=== PATIENT | female | born 1945 | race Caucasian/White ===

== ENCOUNTER 2021-11-25 17:35 | Inpatient (IN) ==
--- NOTE | 2021-11-25 17:49 | Emergency Department Note ---
HPI General Chief complaint: Extremity Injury, Lower Stated complaint: leg fracture Time Seen by Provider: 11/25/21 17:48 Source: patient and EMS Mode of arrival: ambulatory Limitations: no limitations History of Present Illness HPI Narrative: 68-year-old female with past medical history of hypertension and hyperlipidemia, presenting with right hip pain after a fall. Patient states she slipped at the store on the ice and fell onto her right side. Denies hitting her head or losing consciousness. She endorses pain in her right lateral hip area and right knee. No numbness, weakness, or paresthesias. History of left hip surgical repair. She was given 30 mg of ketamine via EMS secondary to her opiate aller gies. Currently she has pain in her right hip but denies any other complaints. No recent fever, cough, vomiting, abdominal pain, or dysuria. Not on anticoagulation. Related Data Home Medications Medication Instructions Recorded Confirmed acetaminophen 325 mg capsule 325 mg PO Q6H PRN 08/05/19 11/25/21 (Tylenol) denosumab 60 mg/mL subcutaneous 60 mg SUB-Q ONCE 08/05/19 11/25/21 syringe (Prolia) cholecalciferol (vitamin D3) 125 50,000 unit PO WEEKLY 11/25/21 11/25/21 mcg (5,000 unit) capsule Previous Rx's Medication Instructions Recorded benzonatate 200 mg capsule 200 mg PO TID PRN #21 cap 07/22/20 pioglitazone 15 mg tablet See Rx Instructions .ROUTE 02/14/21 .COMPLEX #90 tab blood sugar diagnostic (OneTouch #100 each 03/14/21 Ultra Blue Test Strip) amlodipine 5 mg tablet 5 mg PO QDAY #90 tab 08/04/21 atorvastatin 20 mg tablet 20 mg PO HS #90 tab 08/04/21 levothyroxine 112 mcg tablet See Rx Instructions .ROUTE 08/04/21 .COMPLEX #90 tab metoprolol succinate 25 mg 25 mg PO QDAY #90 tab 08/04/21 tablet,extended release 24 hr montelukast 10 mg tablet 10 mg PO QDAY #90 tab 08/04/21 omeprazole 40 mg capsule,delayed 40 mg PO QDAY #90 cap 08/04/21 release hydrochlorothiazide 25 mg tablet 25 mg PO QDAY #90 tab 09/06/21 repaglinide 1 mg tablet See Rx Instructions .ROUTE 10/24/21 .COMPLEX #270 tab Allergies Allergy/AdvReac Type Severity Reaction Status Date / Time morphine Allergy Severe Anaphylaxis Verified 11/25/21 21:25 albuterol Allergy Unknown Unknown Verified 11/25/21 21:25 amitriptyline Allergy Unknown Unknown Verified 11/25/21 21:25 [From Triavil 2-10] clarithromycin [From Biaxin] Allergy Unknown Unknown Verified 11/25/21 21:25 glipizide Allergy Unknown Unknown Verified 11/25/21 21:25 hydrocodone [From Vicodin] Allergy Unknown Hallucinati Verified 11/25/21 21:25 ng meloxicam Allergy Unknown Unknown Verified 11/25/21 21:25 metformin Allergy Unknown Flatulence Verified 11/25/21 21:25 oxycodone [Oxycodone] Allergy Unknown Hallucinati Verified 11/25/21 21:25 ng perphenazine Allergy Unknown Unknown Verified 11/25/21 21:25 [From Triavil 2-10] Sulfa (Sulfonamide Allergy Unknown problem Verified 11/25/21 21:25 Antibiotics) with kidneys tramadol [From Ultram] Allergy Unknown Unknown Verified 11/25/21 21:25 nitrofurantoin Allergy Abdominal Verified 11/25/21 21:25 [From Macrobid] Pain mirabegron [From Myrbetriq] AdvReac Severe Dizziness Verified 11/25/21 21:25 NO ALLERGY to fentanyl Allergy Intermediate Unknown Uncoded 10/26/21 15:20 Review of Systems ROS ROS Narrative: Narrative: Constitutional: Denies fever or chills ENT ED: Denies throat pain Cardiovascular: Denies chest pain Respiratory: Denies shortness of breath or cough Gastrointestinal: Denies abdominal pain, nausea, vomiting or diarrhea Genitourinary: Denies dysuria or hematuria Musculoskeletal: Denies back pain Integumentary: Denies rash Neurological: Denies headache, numbness, paresthesias or dizziness Psychiatric: Denies anxiety Endocrine: Denies fatigue Hematological/Lymphatic: Denies easy bleeding PFSH Narrative Patient History Narrative: Narrative: Medical/Surgical/Family History All Active Problems (Updated 11/26/21 @ 01:05 by Campos Meng MD) Closed nondisplaced intertrochanteric fracture of right femur (Acute) Strain of left hip (Acute) History of hip surgery (Acute) Left hip pain (Acute) History of thyroid surgery (Chronic) Hx of pelvic surgery (Chronic) History of nephrectomy (Chronic) Hx of knee surgery (Chronic) History of incisional hernia repair (Chronic 06/12/13) Hx of esophagogastroduodenoscopy (Chronic) Hx of colonoscopy (Chronic 10/02/12) Hx of cholecystectomy (Chronic) Previous section (Chronic) Urinary tract infection (Chronic) Secondary hyperparathyroidism, renal (Chronic 01/13/14) Renal failure (Chronic) Pyelonephritis (Chronic) Acidosis, renal tubular (Chronic 01/13/14) History of kidney stones (Chronic) Calculus of kidney (Chronic 05/21/13) Incisional hernia, without obstruction or gangrene (Chronic 06/11/13) Hypoglycemia (Chronic) Hypertensive chronic kidney disease (Chronic 12/16/13) Essential hypertension (Chronic) Dyslipidemia (Chronic) Hydronephrosis (Chronic) Broken hip (Chronic) Closed fracture of shaft of femur (Chronic) DM w/o complication type II (Chronic) Acute cystitis (Chronic 05/25/13) Cystitis (Chronic) Carpal tunnel syndrome (Chronic) Breast tenderness (Chronic) Back pain (Chronic) Anemia in chronic kidney disease (Chronic 01/13/14) Anemia (Chronic) Acquired absence of kidney (Chronic) Abdominal pain (Chronic) CKD (chronic kidney disease), stage III (Chronic) Chronic Kidney Disease (Chronic) Secondary hyperparathyroidism of renal origin (Chronic) UTI (urinary tract infection) (Chronic) Low back pain (Chronic) Proximal humerus fracture (Chronic) Strain of lumbar region (Chronic) Osteoarthritis of lumbar spine (Chronic) Ankle sprain and strain (Chronic) Knee contusion (Chronic) Osteoarthritis of left shoulder (Chronic) Osteoarthritis of right knee (Chronic) Skin lesion of face (Chronic) Shoulder pain, left (Chronic) Depression (Chronic) Dry skin (Chronic) Grief reaction (Chronic) Lumbar back pain with radiculopathy affecting lower extremity (Chronic) Knee pain, right (Chronic) Hip pain (Chronic) Thyroid nodule (Chronic) Actinic keratosis (Chronic) Osteoporosis (Chronic) Nausea (Chronic) Dermatitis (Chronic) Memory loss (Chronic) Leg pain (Chronic) Other specified idiopathic peripheral neuropathy (Chronic) Urinary tract infection, site not specified (Chronic) Renovascular hypertension (Chronic) Secondary hyperparathyroidism (Chronic) Obesity (Chronic) Nephrolithiasis (Chronic) Other specified disorders resulting from impaired renal function (Chronic) Closed compression fracture of thoracic vertebra (Chronic) Hypertension (Chronic) Diabetes mellitus (Chronic) Hypothyroidism (Chronic) Chronic rhinitis (Chronic) Osteoarthritis (Chronic) Hernia, incisional (Chronic) Hypotension (Chronic) Hyperkalemia (Chronic) Fracture of femur, intertrochanteric, left, closed (Chronic) Hydronephrosis, right (Chronic) Herpes simplex infection (Chronic) Gastroparesis (Chronic) Constipation (Chronic) Osteopenia (Chronic) Diabetic neuropathy (Chronic) Peripheral neuropathy (Chronic) Anxiety (Chronic) Vertigo (Chronic) Venous insufficiency (Chronic) Postphlebetic syndrome with other complication (Chronic) Varicose veins of lower extremities with other complications (Chronic) Atherosclerosis of [place] arteries of the extremities with rest pain (Chronic) Leg pain, bilateral (Chronic) Sciatica (Chronic) Arthritis (Chronic) Unspecified vitamin D deficiency (Chronic) Shoulder pain (Chronic) GERD (gastroesophageal reflux disease) (Chronic) COPD (chronic obstructive pulmonary disease) (Chronic) Hyperlipidemia (Chronic) Hormone replacement therapy (HRT) (Chronic) Fall (Acute) Rib pain on right side (Acute) Chest wall contusion (Acute) Physical exam (Chronic) Closed left hip fracture (Chronic ~2012) Skin lesion (Acute) Squamous cell skin cancer (Acute) Visit for suture removal (Acute) Medication monitoring encounter (Chronic) Situational stress (Acute) Visit for suture removal (Acute) Fever (Acute) UTI (urinary tract infection) (Acute) Right upper quadrant pain (Acute) Thoracic back pain (Acute) Cough (Acute) Recurrent UTI (Acute) Acute URI (Acute) OAB (overactive bladder) (Acute) Nocturia more than twice per night (Acute) Dependent edema (Acute) Pruritic intertrigo (Acute) Vaginitis (Acute) Urge incontinence of urine (Acute) Postmenopausal atrophic vaginitis (Acute) Callus (Acute) Peripheral edema (Acute) Bilateral leg cramps (Acute) Medical History (Updated 11/26/21 @ 01:05 by Campos Meng MD) Abdominal pain Acidosis, renal tubular (01/13/14) Acquired absence of kidney Actinic keratosis Acute cystitis (05/25/13) Anemia above threshold for RAY but has some drop will obtain anemia work up Anemia in chronic kidney disease (01/13/14) Anxiety Arthritis Atherosclerosis of [place] arteries of the extremities with rest pain Back pain Breast tenderness Broken hip Calculus of kidney (05/21/13) Carpal tunnel syndrome Chronic Kidney Disease Chronic rhinitis CKD (chronic kidney disease), stage III most recent s.creat is 1.5 which equals to egfr of 33ml/min per MDRD equation, s.creat a little worse from 1.3-1.4 h/o microalbuminuria risk factors as above labs discussed with the pt advised to avoid NSAIDS, volume depletion Advised to avoid protein drink keep BP log and work on weight loss Will follow with repeat labs in 2-3 mths to ensure stable renal function Closed compression fracture of thoracic vertebra Closed fracture of shaft of femur Closed left hip fracture (~2012) Constipation COPD (chronic obstructive pulmonary disease) Cystitis Depression Dermatitis Diabetes mellitus Diabetic neuropathy DM w/o complication type II Dry skin Dyslipidemia Essential hypertension Fever Fracture of femur, intertrochanteric, left, closed Gastroparesis GERD (gastroesophageal reflux disease) Grief reaction Hernia, incisional Herpes simplex infection Hip pain History of kidney stones Hormone replacement therapy (HRT) Hydronephrosis Hydronephrosis, right Hyperkalemia Hyperlipidemia Hypertension Hypertensive chronic kidney disease (12/16/13) BP at goal ct current meds follow low sodium diet walk for 30 min atleast 5 times a week Hypoglycemia Hypotension Hypothyroidism Incisional hernia, without obstruction or gangrene (06/11/13) Knee pain, right Left hip pain Leg pain Leg pain, bilateral Lumbar back pain with radiculopathy affecting lower extremity Memory loss Nausea Nephrolithiasis Obesity Osteoarthritis Osteopenia Osteoporosis Other specified disorders resulting from impaired renal function Other specified idiopathic peripheral neuropathy Peripheral neuropathy Physical exam Postphlebetic syndrome with other complication Pyelonephritis Recurrent UTI Renal failure Renovascular hypertension Sciatica Secondary hyperparathyroidism Secondary hyperparathyroidism of renal origin phos elevated likely related to increased dietary intake low phos diet discussed if persistent elevated will need to add binders also will check PTH and vitamin D, Levels at goal this visit Secondary hyperparathyroidism, renal (01/13/14) Shoulder pain Shoulder pain, left Skin lesion of face Strain of left hip Thyroid nodule Unspecified vitamin D deficiency Urinary tract infection Urinary tract infection, site not specified UTI (urinary tract infection) Varicose veins of lower extremities with other complications Venous insufficiency Vertigo Surgical History (Updated 10/26/21 @ 16:13 by SISI Solomon) History of esophagogastroduodenoscopy (EGD) (~06/2010) INFLAMMATION History of hip surgery History of incisional hernia repair (06/12/13) laparoscopic ventral incisional hernia repair with mesh History of nephrectomy History of thyroid surgery Hx of cholecystectomy Hx of colonoscopy (10/02/12) Hx of esophagogastroduodenoscopy 06/2010 Hx of knee surgery Hx of pelvic surgery Right Pyeloplasty Previous section Family History Father , age 87 Alzheimer's disease Paternal Grandmother Alzheimer's disease Mother Angina at rest HTN (hypertension) Arthritis Osteoporosis Uncle Type 2 diabetes mellitus Maternal Grandparent , Grandmother and Grandfather both age 94 No problems noted. Grandfather , age unknown, Paternal No problems noted. Son Headache Social History Smoking Status: Former smoker Alcohol Intake Frequency: does not drink Substance Use: does not use Exam Narrative Narrative: Narrative: General Limitations: no limitations General appearance: Present alert and in no apparent distress Head Head: Present atraumatic and normocephalic Eye Eye: Present normal appearance, PERRL and EOMI; Absent scleral icterus or conjunctival injection ENT ENT: Present mucous membranes moist Neck Neck: Present normal inspection, full ROM and trachea midline; Absent tenderness, meningismus or lymphadenopathy Chest Chest: Present symmetric chest wall rise Respiratory Respiratory: Present normal lung sounds bilaterally; Absent respiratory distress, wheezes, stridor, accessory muscle use or prolonged expiratory phase Cardiovascular Cardiovascular: Present regular rate and normal rhythm; Absent systolic murmur or diastolic murmur Expanded Lower Extremity Hip/Pelvis: Present tenderness (Over the right lateral hip); Absent swelling, deformity or erythema Upper leg: Present normal inspection; Absent swelling or deformity Knee: Present normal inspection and tenderness; Absent deformity Ankle: Present normal inspection and full ROM; Absent tenderness Foot/toe: Present normal inspection and full ROM; Absent tenderness Neurovascular/Tendon: Present normal capillary refill; Absent pulse deficit, motor deficit or sensory deficit Neurological Neurological: Present alert, oriented X3 and CN II-XII intact; Absent motor sensory deficit Psychiatric Psychiatric: Present normal affect and normal mood Skin Skin: Present warm (WNL) and dry Course Consultations Consultation #1: Dr. Coley, orthopedics Time: 20:18 Vital Signs Vital signs: Vital Signs Temperature 96.8 F L 11/25/21 17:36 Pulse Rate 108 H 11/25/21 17:36 Respiratory Rate 19 11/25/21 17:36 Blood Pressure 187/98 11/25/21 17:36 Pulse Oximetry (%) 98 11/25/21 17:36 Temperature 96.8 F L 11/25/21 17:36 Pulse Rate 92 H 11/25/21 23:17 Respiratory Rate 18 11/25/21 23:17 Blood Pressure 128/66 11/25/21 23:17 Pulse Oximetry (%) 96 11/25/21 23:17 MDM MDM Narrative Medical decision making narrative: 76-year-old female presenting with right hip pain after a fall. No external signs of trauma noted. Not on anticoagulation. Will obtain x-rays and reevaluate. 2330: X-rays notable for a nondisplaced right intertrochanteric femur fracture. She was given IV ketamine 20 mg for pain, given her opioid allergies. Patient discussed with Dr. Matos of orthopedics who will admit. Holding orders placed. Labs notable for mild hyponatremia but are otherwise stable. Patient transferred to the floor without incident. Lab Data Lab results reviewed: Yes I reviewed the patient's lab results. Result diagrams: 11/25/21 20:27 11/25/21 20:27 Labs: Lab Results 11/25/21 11/25/21 11/25/21 Range/Units 20:27 20:27 20:27 WBC 8.9 (4.5-11.0) K/mcL RBC 4.38 (3.59-5.38) M/mcL Hgb 13.6 (11.2-15.7) g/dL Hct 40.3 (34.1-44.9) % MCV 92.0 (80.0-100.0) fL MCH 31.1 (26.0-34.0) pg MCHC 33.7 (31.0-36.0) g/dL RDW 13.2 (11.5-14.5) % Plt Count 166 (140-440) K/mcL MPV 10.7 H (7.4-10.4) fL Neut % (Auto) 79.6 H (38.0-78.0) % Lymph % (Auto) 13.3 L (15.5-49.0) % Dodge % (Auto) 6.3 (1.0-12.0) % Eos % (Auto) 0.6 (0.0-7.0) % Baso % (Auto) 0.2 (0.0-2.0) % Lymph # (Auto) 1.18 L (1.50-4.80) K/mcL Dodge # (Auto) 0.56 (0.10-0.90) K/mcL Eos # (Auto) 0.05 (0.00-0.70) K/mcL Baso # (Auto) 0.02 (0.00-0.30) K/mcL Absolute Neutrophils 7.07 (1.80-8.00) K/mcL PT 13.1 (11.9-14.5) sec INR 1.0 (0.9-1.1) Sodium 129 L (133-145) mmol/L Potassium 3.7 (3.3-5.1) mmol/L Chloride 94 L (96-108) mmol/L Carbon Dioxide 24 (22-30) mmol/L Anion Gap 11.0 (8.0-16.0) BUN 22 (8-23) mg/dL Creatinine 1.2 H (0.6-1.1) mg/dL GFR Calculation 43 Glucose 145 H (70-105) mg/dL Calcium 9.6 (8.6-10.4) mg/dL Total Bilirubin 0.7 (0.1-1.0) mg/dL AST 31 (<32) U/L ALT 19 (<40) U/L Alkaline Phosphatase 98 (39-117) U/L Total Protein 7.8 (5.9-8.4) gm/dL Albumin 4.1 (3.2-5.2) gm/dL Globulin 3.7 (2.2-3.7) gm/dL Albumin/Globulin Ratio 1.1 (1.0-2.3) Urine Color Urine Appearance (Clear) Urine pH (5.0-9.0) Ur Specific Orange (1.000-1.035) Urine Protein (Negative) mg/dL Urine Glucose (UA) (Negative) mg/dL Urine Ketones (Negative) mg/dL Urine Occult Blood (Negative) randolph/mcL Urine Nitrate (Negative) Urine Bilirubin (Negative) mg/dL Urine Urobilinogen mg/dL Ur Leukocyte Esterase (Negative) /uL Urine RBC (0-3) /hpf Urine WBC (0-4) /hpf Ur Squamous Epith Cells (0-4) /hpf Urine Bacteria (0) /hpf Ur Culture Indicated? 02/25/22 Range/Units 20:28 WBC (4.5-11.0) K/mcL RBC (3.59-5.38) M/mcL Hgb (11.2-15.7) g/dL Hct (34.1-44.9) % MCV (80.0-100.0) fL MCH (26.0-34.0) pg MCHC (31.0-36.0) g/dL RDW (11.5-14.5) % Plt Count (140-440) K/mcL MPV (7.4-10.4) fL Neut % (Auto) (38.0-78.0) % Lymph % (Auto) (15.5-49.0) % Dodge % (Auto) (1.0-12.0) % Eos % (Auto) (0.0-7.0) % Baso % (Auto) (0.0-2.0) % Lymph # (Auto) (1.50-4.80) K/mcL [place] # (Auto) (0.10-0.90) K/mcL Eos # (Auto) (0.00-0.70) K/mcL Baso # (Auto) (0.00-0.30) K/mcL Absolute Neutrophils (1.80-8.00) K/mcL PT (11.9-14.5) sec INR (0.9-1.1) Sodium (133-145) mmol/L Potassium (3.3-5.1) mmol/L Chloride (96-108) mmol/L Carbon Dioxide (22-30) mmol/L Anion Gap (8.0-16.0) BUN (8-23) mg/dL Creatinine (0.6-1.1) mg/dL GFR Calculation Glucose (70-105) mg/dL Calcium (8.6-10.4) mg/dL Total Bilirubin (0.1-1.0) mg/dL AST (<32) U/L ALT (<40) U/L Alkaline Phosphatase (39-117) U/L Total Protein (5.9-8.4) gm/dL Albumin (3.2-5.2) gm/dL Globulin (2.2-3.7) gm/dL Albumin/Globulin Ratio (1.0-2.3) Urine Color Yellow Urine Appearance Clear (Clear) Urine pH 7.0 (5.0-9.0) Ur Specific Orange 1.020 (1.000-1.035) Urine Protein 100 mg/dl A (Negative) mg/dL Urine Glucose (UA) Negative (Negative) mg/dL Urine Ketones Negative (Negative) mg/dL Urine Occult Blood Trace-lysed A (Negative) randolph/mcL Urine Nitrate Negative (Negative) Urine Bilirubin Negative (Negative) mg/dL Urine Urobilinogen Normal mg/dL Ur Leukocyte Esterase Negative (Negative) /uL Urine RBC < 1 (0-3) /hpf Urine WBC 1 (0-4) /hpf Ur Squamous Epith Cells 0 (0-4) /hpf Urine Bacteria None (0) /hpf Ur Culture Indicated? No Radiology Data Radiology results reviewed: Yes I reviewed the patient's radiology results. Radiology results narrative: X-ray right hip: Nondisplaced right intertrochanteric femur fracture, per my interpretation. X-ray right knee: No acute fracture or dislocation noted, per my interpretation. Chest x-ray: No acute abnormality, per my interpretation. Discharge Plan Patient/Caregiver Discharge Instructions Pt seen by SPANISH INSTRUCTOR/PA only: No Clinical Impression: Closed nondisplaced intertrochanteric fracture of right femur Patient Disposition: Xfer As Inpt ([facility]) Condition: Fair Discharge Date/Time: 11/25/21 21:09
[2021-11-25] MEDS ORDERED: ONDANSETRON 4 MG/2 ML VIAL IV PRN (20:22)
[2021-11-25] MEDS ORDERED: KETAMINE 10 MG/ML ML IV ONE (20:26)
[2021-11-25] MEDS ORDERED: 0.9 % SODIUM CHLORIDE 1,000 ML BAG IV SCH (20:30)
[2021-11-25] MEDS: 0.9 % SODIUM CHLORIDE 1,000 ML IV SCH (20:52)
[2021-11-25] MEDS: ACETAMINOPHEN 325 MG TABLET PO PRN (20:53)
[2021-11-25 21:01] LABS: Basophils # (Auto) 0.02 K/mcL (0.00-0.30); Basophils % (Auto) 0.2 % (0.0-2.0); Eosinophils # (Auto) 0.05 K/mcL (0.00-0.70); Eosinophils % (Auto) 0.6 % (0.0-7.0); Hematocrit 40.3 % (34.1-44.9); Hemoglobin 13.6 g/dL (11.2-15.7); Lymphocytes # (Auto) 1.18 K/mcL (1.50-4.80); Lymphocytes % (Auto) 13.3 % (15.5-49.0); Mean Corpuscular HGB Conc 33.7 g/dL (31.0-36.0); Mean Platelet Volume 10.7 fL (7.4-10.4); Monocytes # (Auto) 0.56 K/mcL (0.10-0.90); Monocytes % (Auto) 6.3 % (1.0-12.0); Neutrophils % (Auto) 79.6 % (38.0-78.0); Platelet Count 166 K/mcL (140-440); RBC 4.38 M/mcL (3.59-5.38); Red Cell Distribution Width 13.2 % (11.5-14.5); WBC 8.9 K/mcL (4.5-11.0)
[2021-11-25 21:11] LABS: Prothrombin Time 13.1 sec (11.9-14.5)
[2021-11-25 21:18] LABS: ALT/SGPT 19 U/L (<40); AST/SGOT 31 U/L (<32); Albumin 4.1 gm/dL (3.2-5.2); Albumin/Globulin Ratio 1.1 (1.0-2.3); Alkaline Phosphatase 98 U/L (39-117); Bilirubin,Total 0.7 mg/dL (0.1-1.0); Blood Urea Nitrogen 22 mg/dL (8-23); Calcium 9.6 mg/dL (8.6-10.4); Carbon Dioxide 24 mmol/L (22-30); Chloride 94 mmol/L (96-108); Globulin 3.7 gm/dL (2.2-3.7); Glomerular Filtration Rate 43; Glucose 145 mg/dL (70-105)
[2021-11-25 21:39] LABS: Appearance,Urine Clear (Clear); Bilirubin,Urine Negative (Negative); Color,Urine Yellow; Culture Indicated,Urine No; Glucose,Urine (UA) Negative (Negative); Ketones,Urine Negative (Negative); Leukocyte Esterase,Urine Negative /uL (Negative); Nitrate,Urine Negative (Negative); Urine Blood Trace-lysed ery/mcL (Negative); Urine RBC < 1 /hpf (0-3); Urine Squamous Epithelial Cell 0 /hpf (0-4); Urine WBC 1 /hpf (0-4); Urobilinogen,Urine Normal
[2021-11-25] MEDS: 0.9 % SODIUM CHLORIDE 10 ML SYRINGE IV SCH (22:19)
[2021-11-26] MEDS: 0.9 % SODIUM CHLORIDE 1,000 ML IV SCH ×3 (03:45→18:36)
--- NOTE | 2021-11-26 04:53 | XRay Report ---
CLINICAL INFORMATION: Pain COMPARISON: None. FINDINGS: Moderate patellofemoral and medial tibiofemoral degeneration appreciated. There is enlargement of the tibial tuberosity suggesting old Eden-Schlatter's disease. No other osseous abnormalities. Calcific plaque present within the visualized femoral arteries. There is mild diffuse soft tissue swelling. IMPRESSION: Chronic findings as described. No fracture or other acute finding Interpreted and Authenticated by: Oumar Centeno 11/26/21
--- NOTE | 2021-11-26 04:59 | XRay Report ---
CLINICAL INFORMATION: Preop COMPARISON: 07/05/2020 TECHNIQUE: Portable FINDINGS: The heart is mildly enlarged. Mediastinum is unremarkable pulmonary vessels are mildly distended and there is mild interstitial edema throughout both lungs. Mild bibasilar airspace disease noted most likely atelectasis. No effusions. Six large ovoid calcifications ranging up to 2 cm are seen in the right subdiaphragmatic region. Exact nature and location of these is indeterminate. IMPRESSION: 1. Mild CHF or volume overload. 2. Minor bibasilar atelectasis 3. Six large ovoid calcific densities in the right subdiaphragmatic region. Exact nature and location of these densities is indeterminate. Suggest supine and lateral abdominal films, unless these represent a known entity external to the patient. Interpreted and Authenticated by: Oumar Centeno 11/26/21
--- NOTE | 2021-11-26 05:01 | XRay Report ---
CLINICAL INFORMATION: Trauma now with right hip pain COMPARISON: 10/26/2021 FINDINGS: Nondisplaced acute intertrochanteric fracture of the right hip appreciated. Gamma nail transfixes an old left hip fracture which is solid unified and anatomically aligned. There is mild degeneration of both hips with chondrocalcinosis of the femoral head cartilages. Moderate degenerative change seen in the SI joints is stable. Soft tissue swelling over the fracture site. IMPRESSION: Nondisplaced acute intertrochanteric fracture-right hip Interpreted and Authenticated by: Oumar Centeno 11/26/21
[2021-11-26] MEDS: 0.9 % SODIUM CHLORIDE 10 ML SYRINGE IV SCH ×5 (05:17→22:26)
[2021-11-26] MEDS ORDERED: SCOPOLAMINE 1 PATCH PATCH TOPICAL PRN (07:00)
[2021-11-26] MEDS ORDERED: ceFAZolin 2 GM in DEXTROSE 5% IN WATER 50 ML IV SCH (07:45)
[2021-11-26] MEDS ORDERED: ceFAZolin 1 GM VIAL IV ONE (08:21)
[2021-11-26] MEDS ORDERED: ceFAZolin 1 GM VIAL ONE (08:28)
[2021-11-26] MEDS ORDERED: HYDROmorphone 1 MG/ML SYRINGE ONE (08:32)
[2021-11-26] MEDS ORDERED: PROPOFOL 200 MG/20 ML VIAL IV ONE (08:32)
[2021-11-26] MEDS ORDERED: TRANEXAMIC ACID 1,000 MG/10 ML VIAL ONE (08:32)
[2021-11-26] MEDS ORDERED: DEXAMETHASONE 10 MG/ML VIAL ONE (08:32)
[2021-11-26] MEDS ORDERED: PHENYLephrine 1 MG/10 ML SYRINGE (ANEST) ONE (08:32)
[2021-11-26] MEDS ORDERED: KETAMINE 50 MG/ML Syringe (ANEST) IV ONE (08:32)
[2021-11-26] MEDS ORDERED: fentaNYL 250 MCG/5 ML VIAL IV ONE (08:32)
[2021-11-26] MEDS ORDERED: ONDANSETRON 4 MG/2 ML VIAL ONE (08:32)
[2021-11-26] MEDS ORDERED: LIDOCAINE HCL/PF 100 MG/5 ML SYRINGE IV ONE (08:32)
[2021-11-26] MEDS ORDERED: MAGNESIUM SULFATE 2 GM/50 ML BAG IV ONE (08:32)
[2021-11-26] MEDS ORDERED: GLYCOPYRROLATE 0.2 MG/ML VIAL IV ONE (08:32)
[2021-11-26] MEDS ORDERED: NALOXONE HCL 0.4 MG/ML VIAL IV PRN (09:15)
[2021-11-26] MEDS ORDERED: HYDROmorphone 0.5 MG/0.5 ML SYRINGE IV PRN (09:15)
[2021-11-26] MEDS ORDERED: IPRATROPIUM/ALBUTEROL 3 ML AMPUL.NEB NEB PRN (09:15)
[2021-11-26] MEDS ORDERED: ACETAMINOPHEN 1,000 MG/100 ML BAG IV ONE (09:15)
[2021-11-26] MEDS ORDERED: MEPERIDINE 25 MG/ML VIAL IV PRN (09:15)
[2021-11-26] MEDS ORDERED: LABETALOL 5 MG/ML ML IV PRN (09:15)
[2021-11-26] MEDS ORDERED: LACTATED RINGERS 250 ML IV PRN (09:15)
[2021-11-26] MEDS ORDERED: LACTATED RINGERS 1,000 ML IV SCH (09:15)
[2021-11-26] MEDS ORDERED: ONDANSETRON 4 MG/2 ML VIAL IV PRN ×3 (09:15→10:00)
[2021-11-26] MEDS ORDERED: METHOCARBAMOL 1,000 MG/10 ML VIAL IV PRN (09:15)
[2021-11-26] MEDS ORDERED: BENZOCAINE/MENTHOL 1 LOZENGE PO PRN (09:15)
[2021-11-26] MEDS ORDERED: METOPROLOL TARTRATE 5 MG/5 ML VIAL IV PRN (09:15)
[2021-11-26] MEDS ORDERED: fentaNYL 100 MCG/2 ML VIAL IV PRN (09:15)
--- NOTE | 2021-11-26 09:56 | Consultation ---
DATE OF CONSULTATION: 11/26/2021 CHIEF COMPLAINT: Significant right hip pain. HISTORY OF PRESENT ILLNESS: She had a same level fall. She had immediate pain, swelling, deformity and she is unable to ambulate. Pain radiates into the groin and distally. No numbness or tingling and no loss of consciousness. She has many medical problems and multiple allergies, which are not really allergies, a little frustrating in speaking with the patient as she does not quite understand what an allergy is. ALLERGIES: SHE LISTS ALLERGIES TO MORPHINE, ALBUTEROL, AMITRIPTYLINE, GLIPIZIDE, OXYCODONE, MELOXICAM BUT MOST OF THOSE ARE TRULY JUST SHE GETS HALLUCINATIONS, TRAMADOL, METFORMIN. PAST MEDICAL AND SURGICAL HISTORY: Her other health problems include the right hip pain, history of knee surgery, history of nephrectomy, history of pelvic surgery, history of esophagogastroduodenoscopy, colonoscopy, cholecystectomy, C-sections, renal failure, pyelonephritis, hypoglycemia, diabetes mellitus type 2. Her list is unimaginably long. She is hypochondriac, everything in her world hurts. PHYSICAL EXAMINATION: GENERAL: Very pleasant female but hysterical. Lying in bed in some pain, but is able to give a fairly good history. VITAL SIGNS: Blood pressure 126/65, pulse 88, respiratory rate is 18, temperature is 99.1, and oxygen concentration is 98.2. LUNGS: Clear to auscultation. HEART: Regular rate and rhythm. No murmurs, rubs, or gallops. EXTREMITIES: Her right leg shortened and externally rotated significantly. Foot is pink and warm, able to move the foot up and down, as much as she will. IMAGING: Her x-ray demonstrates an intertrochanteric hip fracture that extends through the greater trochanter and into the lesser trochanter. Bone quality appears to be poor. No tumors were seen. The medial calcar appears to be intact. She has a gamma nail on her left hip, very similar to this side. ASSESSMENT AND PLAN: The treatment will be a gamma nail at her convenience to be done today. Risk, heart attacks and strokes are all possible and infection were explained. She is willing to take these risks to get the ability to walk again and I agree with this. We will proceed with a gamma nail as soon as possible. JEFERSON:silke Job ID: [id number] Doc ID: [id number] Nish Matos MD
[2021-11-26] MEDS ORDERED: TEMAZEPAM 15 MG CAPSULE PO PRN (10:00)
[2021-11-26] MEDS ORDERED: HYDROmorphone 1 MG/ML SYRINGE IV PRN (10:00)
[2021-11-26] MEDS ORDERED: FLEETS ADULT ENEMA PR PRN (10:00)
[2021-11-26] MEDS ORDERED: POLYETHYLENE GLYCOL 3350 17 GM PACKET PO PRN (10:00)
[2021-11-26] MEDS ORDERED: TRANEXAMIC ACID 1,000 MG/10 ML VIAL IV SCH (10:00)
[2021-11-26] MEDS ORDERED: BISACODYL 10 MG SUPP.RECT PR PRN (10:00)
[2021-11-26] MEDS ORDERED: MAGNESIUM HYDROXIDE 30 ML ORAL.SUSP PO PRN (10:00)
--- NOTE | 2021-11-26 10:11 | Discharge Plan ---
DC Instructions-General Patient Instructions Dressing Care: May shower in 2 days and Silvasorb gel & gauze - change daily Discharge Plan Patient/Caregiver Discharge Instructions Activity: ambulate only with your walker and as per physical therapy Diet: Regular Diet Prescriptions: New aspirin [Ecotrin Low Strength] 81 mg tablet,delayed release (DR/EC) 81 mg PO BID Qty: 60 0RF docusate sodium 100 mg capsule 100 mg PO BID Qty: 60 0RF hydromorphone 4 mg tablet 4 mg PO Q4H PRN (Reason: pain) Qty: 75 0RF No Action Prolia 60 mg/mL syringe 60 mg SUB-Q ONCE 0RF Label Comments: Missed Michelle dose acetaminophen [Tylenol] 325 mg capsule 325 mg PO Q6H PRN (Reason: Pain) 0RF (DME) Alignment AcquisitionsTouch Ultra Blue Test Strip Strip See Rx Instructions .ROUTE .MEDSUPPLY Qty: 100 0RF Rx Instructions: Use to test blood sugars 4 times daily. amlodipine 5 mg tablet 5 mg PO QDAY Qty: 90 0RF levothyroxine 112 mcg tablet See Rx Instructions .ROUTE .COMPLEX Qty: 90 0RF Dose Instruction: TAKE ONE TABLET BY MOUTH EVERY MORNING BEFORE MEAL Rx Instructions: TAKE ONE TABLET BY MOUTH EVERY MORNING BEFORE MEAL metoprolol succinate 25 mg tablet extended release 24 hr 25 mg PO QDAY Qty: 90 0RF montelukast 10 mg tablet 10 mg PO QDAY Qty: 90 0RF omeprazole 40 mg capsule,delayed release(DR/EC) 40 mg PO QDAY Qty: 90 0RF atorvastatin 20 mg tablet 20 mg PO HS Qty: 90 0RF hydrochlorothiazide 25 mg tablet 25 mg PO QDAY Qty: 90 3RF repaglinide 1 mg tablet See Rx Instructions .ROUTE .COMPLEX Qty: 270 0RF Dose Instruction: TAKE 1 TABLET BY MOUTH THREE TIMES DAILY Rx Instructions: TAKE 1 TABLET BY MOUTH THREE TIMES DAILY pioglitazone 15 mg tablet See Rx Instructions .ROUTE .COMPLEX Qty: 90 3RF Dose Instruction: TAKE ONE TABLET BY MOUTH ONCE DAILY Rx Instructions: TAKE ONE TABLET BY MOUTH ONCE DAILY benzonatate 200 mg capsule 200 mg PO TID PRN (Reason: cough) Qty: 21 0RF cholecalciferol (vitamin D3) 125 mcg (5,000 unit) capsule 50,000 unit PO WEEKLY 0RF Other Ambulatory Orders: Physical Therapy DC - SERA (Routine) Location: None Selected Ordered By: Wilver Nelson Toilet Riser Discharge Order (ONCE) Location: None Selected Ordered By: Wilver Nelson Walker (ONCE) Location: None Selected Ordered By: Wilver Nelson Follow Up Plan Follow up with: Delia Young ARNP [Primary Care Provider] - Wilver Nelson PA-C [Physician Toggle Press Operator] - Patient Disposition: Home, Self-Care Prognosis: Fair Rehab Potential: Good I certify that the patient requires SNF services: No Overall status at discharge: patient is progressing back to baseline Discharge Orders: Discharge Order (Routine); Ordered 11/27/21 Ordered By: Wilver Nelson
[2021-11-26] MEDS ORDERED: BENZONATATE 100 MG CAPSULE PO PRN (10:26)
[2021-11-26] MEDS: LACTATED RINGERS 1,000 ML IV SCH ×3 (14:31→23:57)
--- NOTE | 2021-11-26 14:31 | XRay Report ---
CLINICAL INFORMATION: ORIF right intertrochanteric fracture COMPARISON: Preoperative films 11/25/2021. FINDINGS: The right intertrochanteric fracture has been reduced anatomic alignment and transfixed by gamma nail. Older left intertrochanteric fracture is solid unified also transfixed by gamma nail. There is mild degenerative change in both SI and hip joints-as previously seen. Moderate right patellofemoral and medial tibiofemoral degeneration also noted. No soft tissue abnormality. IMPRESSION: Right intertrochanteric fracture reduced to anatomic alignment and transfixed by gamma nail. Interpreted and Authenticated by: Oumar Centeno 11/26/21
[2021-11-26] MEDS: LEVOTHYROXINE SODIUM 112 MCG TABLET PO SCH (14:32)
[2021-11-26] MEDS: PIOGLITAZONE 15 MG TABLET PO SCH (14:33)
--- NOTE | 2021-11-26 14:38 | XRay Report ---
CLINICAL INFORMATION: Right intertrochanteric fracture COMPARISON: None. FINDINGS: Intraoperative digital images the right intertrochanteric fracture reduced anatomic alignment transfixed by gamma nail and screws. Mild right-sided degeneration noted. Total fluoroscopy time 0.7 minutes IMPRESSION: Right intertrochanteric fracture reduced to anatomic alignment and transfixed by gamma nail Interpreted and Authenticated by: Oumar Centeno 11/26/21
[2021-11-26] MEDS: REPAGLINIDE 1 MG TABLET PO SCH ×2 (17:39→18:29)
[2021-11-26] MEDS: SENNOSIDES 1 TABLET PO SCH (20:54)
[2021-11-26] MEDS: ATORVASTATIN 20 MG TABLET PO SCH (20:54)
[2021-11-26] MEDS: DOCUSATE SODIUM 100 MG CAPSULE PO SCH (20:54)
[2021-11-26] MEDS: ACETAMINOPHEN 325 MG TABLET PO PRN (20:55)
[2021-11-26] MEDS: ASPIRIN 81 MG TAB.CHEW CHEWED SCH (20:55)
[2021-11-26] MEDS ORDERED: DEXTROSE 50% 50 ML VIAL IV PRN (21:21)
[2021-11-26] MEDS ORDERED: DEXTROSE 31 GM ORAL.SUSP PO PRN (21:21)
[2021-11-26] MEDS: INSULIN LISPRO 1 UNIT/0.01 ML UNIT SQ SCH (21:27)
[2021-11-26] MEDS ORDERED: INSULIN LISPRO 1 UNIT/0.01 ML UNIT SQ ONE (21:31)
[2021-11-27] MEDS: 0.9 % SODIUM CHLORIDE 10 ML SYRINGE IV SCH ×6 (05:23→20:48)
[2021-11-27] MEDS: OMEPRAZOLE 20 MG CAPSULE PO SCH (07:33)
[2021-11-27] MEDS: REPAGLINIDE 1 MG TABLET PO SCH ×3 (07:33→16:38)
[2021-11-27] MEDS: LEVOTHYROXINE SODIUM 112 MCG TABLET PO SCH (07:33)
[2021-11-27] MEDS: ACETAMINOPHEN 325 MG TABLET PO PRN ×2 (07:34→16:37)
[2021-11-27] MEDS: INSULIN LISPRO 1 UNIT/0.01 ML UNIT SQ SCH ×4 (07:36→20:47)
[2021-11-27] MEDS: MONTELUKAST 10 MG TABLET PO SCH (08:18)
[2021-11-27] MEDS: PIOGLITAZONE 15 MG TABLET PO SCH (08:18)
[2021-11-27] MEDS: DOCUSATE SODIUM 100 MG CAPSULE PO SCH ×2 (08:18→20:44)
[2021-11-27] MEDS: amLODIPine 5 MG TABLET PO SCH (08:19)
[2021-11-27] MEDS: ASPIRIN 81 MG TAB.CHEW CHEWED SCH ×2 (08:19→20:44)
[2021-11-27] MEDS: HYDROCHLOROTHIAZIDE 25 MG TABLET PO SCH (08:19)
[2021-11-27] MEDS: METOPROLOL SUCCINATE 25 MG TAB.XL.24H PO SCH (08:19)
[2021-11-27] MEDS: LACTATED RINGERS 1,000 ML IV SCH ×2 (08:24→16:37)
[2021-11-27] MEDS ORDERED: ERGOCALCIFEROL (VITAMIN D2) 50,000 UNIT CAPSULE PO SCH (09:00)
--- NOTE | 2021-11-27 09:37 | Orthopedic Progress Note ---
SUBJECTIVE Subjective Patient information: Note initiated : 11/27/21 at 9:32 am Service Date, if different from initiated Date: [] Patient: Jennifer Nino 76 y/o F admitted on 11/25/21 for leg fracture. Chief Complaint: [pain with weight bearing right hip post op day 1 and eating well] Principal diagnosis: right femur fx with pain Constitutional Vitals: Vital Signs Temp Pulse Resp BP Pulse Ox 98.0 F 75 14 128/60 94 11/27/21 06:39 11/27/21 06:39 11/27/21 06:39 11/27/21 06:39 11/27/21 06:39 Period Temp Pulse Resp BP Sys/Guillory Pulse Ox Last 24 Hr 97.2 F-99.3 F 75-114 7-23 114-159/52-88 90-100 Intake and Output 11/26/21 11/27/21 11/27/21 21:59 05:59 13:59 Intake Total 1100 1134 Output Total 785 200 Balance 315 934 Weight 217 lb Intake & Output: Intake & Output 11/26/21 11/27/21 11/27/21 21:59 05:59 13:59 Intake Total 1100 1134 Output Total 785 200 Balance 315 934 Weight 217 lb Intake: IV 1100 934 Sodium Chloride 0.9% 1,000 ml @ 1000 100 mls/hr IV .Q10H СЕРГЕЙ Rx#: [id number] Lactated Ringers 1,000 ml @ 100 934 mls/hr IV .Q10H СЕРГЕЙ Rx#: [id number] Oral 200 Output: Urine Catheter Amount 785 200 Other: Meal Dinner Percent of Meal Consumed 75% Urine Appearance Clear External Urinary Catheter Clear Clear Urine Color Pale External Urinary Catheter Pale Light [place] Urine Odor Strong General appearance: cooperative and obese Extremities Exam Extremities exam: Present joint swelling, normal capillary refill and neurovascular intact Neurological Exam Neurological exam: Present alert, CN II-XII intact and oriented X3 OBJ DATA Labs CBC & Chem 7: 11/27/21 05:53 11/25/21 20:27 Labs: Abnormal Lab Results 11/27/21 11/25/21 11/25/21 05:53 20:28 20:27 Hct 32.6 L MPV Neut % (Auto) Lymph % (Auto) Lymph # (Auto) Sodium 129 L Chloride 94 L Creatinine 1.2 H Glucose 145 H Urine Protein 100 mg/dl A Urine Occult Blood Trace-lysed A 11/25/21 20:27 Hct MPV 10.7 H Neut % (Auto) 79.6 H Lymph % (Auto) 13.3 L Lymph # (Auto) 1.18 L Sodium Chloride Creatinine Glucose Urine Protein Urine Occult Blood Meds: Medications Acetaminophen (Acetaminophen 325 Mg Tablet) 650 mg PO Q6HP PRN; Protocol PRN Reason: Per Pain Protocol/Fever > 101 Last Admin: 11/27/21 07:34 Dose: 650 mg Documented by: Hydrocodone Bitart/Acetaminophen (Hydrocodone/Apap 5/325mg Tablet) 1 - 2 tab PO Q4HP PRN; Protocol PRN Reason: Per Pain Protocol Amlodipine Besylate (Amlodipine 5 Mg Tablet) 5 mg PO QDAY [facility] Last Admin: 11/27/21 08:19 Dose: 5 mg Documented by: Aspirin (Aspirin 81 Mg Tab.Chew) 81 mg CHEWED BID [facility] Last Admin: 11/27/21 08:19 Dose: 81 mg Documented by: Atorvastatin Calcium (Atorvastatin 20 Mg Tablet) 20 mg PO HS [facility] Last Admin: 11/26/21 20:54 Dose: 20 mg Documented by: Benzonatate (Benzonatate 100 Mg Capsule) 200 mg PO TIDP PRN PRN Reason: Cough Bisacodyl (Bisacodyl 10 Mg Supp.Rect) 10 mg VA Q2-3DAYS PRN PRN Reason: Constipation Dextrose (Dextrose 50% 50 Ml Vial) 0 ml IV UD PRN PRN Reason: Hypoglycemia Diagnostic Test (Pha) (Accu-Chek 1 Each Strip) 1 each FS ACHS [facility] Last Admin: 11/27/21 07:36 Dose: 1 each Documented by: Docusate Sodium (Docusate Sodium 100 Mg Capsule) 100 mg PO BID [facility] Last Admin: 11/27/21 08:18 Dose: 100 mg Documented by: Ergocalciferol (Ergocalciferol (Vitamin D2) 50,000 Unit Capsule) 50,000 unit PO López@0900 [facility] Last Admin: 11/27/21 08:19 Dose: 50,000 unit Documented by: Glucose (Dextrose 31 Gm Oral.Susp) 15 gm PO PRN PRN PRN Reason: Hypoglycemia Hydrochlorothiazide (Hydrochlorothiazide 25 Mg Tablet) 25 mg PO QDAY [facility] Last Admin: 11/27/21 08:19 Dose: 25 mg Documented by: Hydromorphone HCl (Hydromorphone 1 Mg/Ml Syringe) 0.5 - 2 mg IV Q2HP PRN; Protocol PRN Reason: Per Pain Protocol Lactated Ringer's (Lactated Ringers) 1,000 mls @ 100 mls/hr IV .Q10H [facility] Last Admin: 11/27/21 08:24 Dose: Not Given Documented by: Insulin Human Lispro (Insulin Lispro 1 Unit/0.01 Ml Unit) 0 unit SQ ACHS [facility]; Protocol Last Admin: 11/27/21 07:36 Dose: Not Given Documented by: Levothyroxine Sodium (Levothyroxine Sodium 112 Mcg Tablet) 112 mcg PO ACB [facility] Last Admin: 11/27/21 07:33 Dose: 112 mcg Documented by: Magnesium Hydroxide (Magnesium Hydroxide 30 Ml Oral.Susp) 30 ml PO BIDP PRN PRN Reason: Constipation Metoprolol Succinate (Metoprolol Succinate 25 Mg Tab.Xl.24h) 25 mg PO QDAY [facility] Last Admin: 11/27/21 08:19 Dose: 25 mg Documented by: Montelukast Sodium (Montelukast 10 Mg Tablet) 10 mg PO QDAY [facility] Last Admin: 11/27/21 08:18 Dose: 10 mg Documented by: Omeprazole (Omeprazole 20 Mg Capsule) 40 mg PO ACB [facility] Last Admin: 11/27/21 07:33 Dose: 40 mg Documented by: Ondansetron HCl (Ondansetron 4 Mg/2 Ml Vial) 4 mg IV Q6HP PRN PRN Reason: Nausea And Vomiting Ondansetron HCl (Ondansetron 4 Mg/2 Ml Vial) 4 mg IV Q4HP PRN; Protocol PRN Reason: Nausea And Vomiting Pioglitazone HCl (Pioglitazone 15 Mg Tablet) 15 mg PO DAILY [facility] Last Admin: 11/27/21 08:18 Dose: 15 mg Documented by: Polyethylene Glycol (Polyethylene Glycol 3350 17 Gm Packet) 17 gm PO DAILYP PRN PRN Reason: Constipation Repaglinide (Repaglinide 1 Mg Tablet) 1 mg PO TIDAC [facility] Last Admin: 11/27/21 07:33 Dose: Not Given Documented by: Senna (Sennosides 1 Tablet) 2 tab PO HS [facility] Last Admin: 11/26/21 20:54 Dose: 2 tab Documented by: Sodium Biphosphate/Sodium Phosphate (Fleets Adult Enema) 1 dose VA Q3-4DAYS PRN PRN Reason: Constipation Sodium Chloride (0.9 % Sodium Chloride 10 Ml Syringe) 10 ml IV Q8 [facility] Last Admin: 11/27/21 05:23 Dose: Not Given Documented by: Sodium Chloride (0.9 % Sodium Chloride 10 Ml Syringe) 10 ml IV Q8 [facility] Last Admin: 11/27/21 05:45 Dose: Not Given Documented by: Temazepam (Temazepam 15 Mg Capsule) 15 mg PO HSP PRN PRN Reason: Insomnia A/P Narrative A/P Narrative: Unable to ambulate today as weight bearing is painful and is sitting in chair Will need SNF because of pour ambulation Poor bone quality is part of her problem as well. Time Spent With Patient Time: Total time spent is greater than 50% in coordination of care (as documented) at patient's floor/unit and/or counseling patient: Total time spent with greater than 50% in coordination of care (as documented) at patient's floor/unit and/or counseling patient:: Greater than 35 minutes
[2021-11-27] MEDS: HYDROcodone/APAP 5/325MG TABLET PO PRN (17:02)
[2021-11-27] MEDS: ATORVASTATIN 20 MG TABLET PO SCH (20:44)
[2021-11-27] MEDS: SENNOSIDES 1 TABLET PO SCH (20:48)
[2021-11-28] MEDS: 0.9 % SODIUM CHLORIDE 10 ML SYRINGE IV SCH ×6 (05:52→20:40)
--- NOTE | 2021-11-28 07:27 | Consultation ---
DATE OF CONSULTATION: 11/25/2021 DATE OF ADMISSION: 11/25/2021 CONSULTING PHYSICIAN: Dr Nish Matos. ADMITTING DIAGNOSIS: Right hip intertrochanteric fracture. HISTORY OF PRESENT ILLNESS: Pleasant 76-year-old female was going out yesterday afternoon to the [employer] where she was planning on getting a meal, unfortunately fell on the ice that was outside of the facility, injuring her right hip. She was taken via EMS to [facility] emergency department and evaluated there and found to have a minimally displaced intertrochanteric hip fracture. PAST MEDICAL HISTORY: Remarkable for hypertension, hyperlipidemia and diabetes. MEDICATIONS: Include vitamin D3, denosumab 60 mg per mL and Tylenol. ALLERGIES: THE PATIENT'S KNOWN DRUG ALLERGIES ARE MORPHINE, ALBUTEROL, AMITRIPTYLINE, CLARITHROMYCIN, GLIPIZIDE, HYDROCODONE, MELOXICAM, METFORMIN, OXYCODONE, PERPHENAZINE, SULFA, TRAMADOL, NITROFURANTOIN, MIRABEGRON, and no allergies to fentanyl. REVIEW OF SYSTEMS: She currently denies any head trauma, visual changes, headaches, fever, sweats, chills, chest pain, syncope, shortness of breath, abdominal pain, nausea, vomiting or diarrhea. The patient denies any neck pain. The patient's primary chief complaints related to her primary review of system, which was right hip pain with any types of motion whatsoever. PAST MEDICAL AND SURGICAL HISTORY: Includes a left hip fracture with intramedullary nail fixation. She has had a history of thyroid surgery, pelvic surgery, nephrectomy. She has had a left total knee arthroplasty, incisional hernia repair, and upper esophagogastroduodenoscopy, colonoscopy. She has had section. She has had a secondary hyperparathyroidism, renal failure with pyelonephritis. She has had renal tubular acidosis, kidney stones, hypoglycemia, chronic kidney disease. She has had type 2 diabetes, acute cystitis. She has had carpal tunnel syndrome, anemia, chronic kidney disease, low back pain, chronic knee pain, some memory loss, dermatitis, osteoarthritis. FAMILY HISTORY: Had a father with Alzheimer's, mother with Alzheimer's, mother also with hypertension, osteoporosis, diabetes in the family as well. SOCIAL HISTORY: She is a prior smoker, does not use alcohol, or illicit substances. PHYSICAL EXAMINATION: Vital Signs: Include temperature 98.3, pulse 85, respirations 16, pulse oximetry 97% on room air, blood pressure 144/69. HEENT: Head is normocephalic. GENERAL: Reveals a pleasant, well-developed, well-nourished 76-year-old female, awake and alert and appears to be comfortably lying in the hospital bed. She is a good historian. NECK: Supple. No adenopathy or thyromegaly. Normal oral mucosa. Pupils equal, round, reactive to light. CHEST: Clear to auscultation. No wheezing, rhonchi, or rales. HEART: Normal sinus rhythm, no gallops, rubs, or murmurs. ABDOMEN: Soft and nontender. No gross organomegaly, guarding, rigidity or rebound tenderness. MUSCULOSKELETAL: Patient has marked tenderness throughout the right hip region, particularly over the greater trochanter and anteriorly. She did not tolerate any active or passive range of motion. She had intact dorsiflexion, plantar flexion, EHL. The foot was pink, warm, and had strong distal pulses. She was neurovascularly intact otherwise. IMAGING REVIEW: Radiographs reviewed from the Emergency Department demonstrated postsurgical changes of the left hip with an intramedullary nail that appears stable. Right hip demonstrates an acute intertrochanteric hip fracture that shows minimal displacement. Otherwise, she exhibits type C bone quality. ASSESSMENT: Acute complicated right hip injury resulting in an intertrochanteric minimally displaced femur fracture. TREATMENT PLAN: Talked with the patient at length who is unable to bear weight and was a daily ambulator with our recommendations that also include consultation with Dr. Matos include surgical recommendations for this hip to include intramedullary nail fixation with a long gamma nail. The benefits, risks, and alternatives were discussed with the patient include, but are not necessarily limited to complications with anesthesia that could include heart attack, stroke and , injury to blood vessels or nerves that could result in chronic pain or paresthesia, blood loss that could require blood transfusion with secondary acquisition of HIV, hepatitis or AIDS infection that could require long-term IV antibiotics and/or future multiple surgeries, further degradation of the hip joint that could necessitate future surgeries and/or arthroplasty, blood clots, pulmonary embolisms, all as the risks of the surgery as well and nonunion of the fracture site that could also result in pain or further surgery. While these were discussed with the patient, there were not fully inclusive of all the risks of surgery and she does consent to the procedure as it has been explained to her. Following the surgery, the patient was educated regarding the typical course of rehabilitation, which will allow her to bear full weight as tolerated. She will avoid any rotational movements on the hip if possible and we will recheck her 2 weeks in the office for wound check and make further followup recommendations to her. BAP:silke Job ID: [id number] Doc ID: [id number] Wilver Nelson PA-C
[2021-11-28] MEDS: REPAGLINIDE 1 MG TABLET PO SCH ×3 (07:28→17:02)
[2021-11-28] MEDS: INSULIN LISPRO 1 UNIT/0.01 ML UNIT SQ SCH ×4 (07:28→20:44)
[2021-11-28] MEDS: OMEPRAZOLE 20 MG CAPSULE PO SCH (07:28)
[2021-11-28] MEDS: LEVOTHYROXINE SODIUM 112 MCG TABLET PO SCH (07:28)
[2021-11-28] MEDS: HYDROcodone/APAP 5/325MG TABLET PO PRN ×3 (07:34→17:02)
--- NOTE | 2021-11-28 07:37 | EKG ---
[facility] Test Date: 2021-11-25 Pat Name: Jennifer Nino Department: [facility] Room: 127 Gender: Female Labeling Specialist: : 1945 Requested By: Jorge Alberto Ochoa Order Number: [id number] Reading MD: Abhijeet Panchal Measurements Intervals [place] Rate: 85 P: 47 [place]: 184 QRS: 30 QRSD: 104 T: 18 QT: 407 QTc: 484 Interpretive Statements Sinus rhythm Atrial premature complex Baseline wander in lead(s) V1,V3 Electronically Signed On 11-28-2021 7:37:12 PST by Abhijeet Panchal /store/M0/[id number]
[2021-11-28] MEDS: METOPROLOL SUCCINATE 25 MG TAB.XL.24H PO SCH (08:13)
[2021-11-28] MEDS: PIOGLITAZONE 15 MG TABLET PO SCH (08:13)
[2021-11-28] MEDS: MONTELUKAST 10 MG TABLET PO SCH (08:13)
[2021-11-28] MEDS: HYDROCHLOROTHIAZIDE 25 MG TABLET PO SCH (08:13)
[2021-11-28] MEDS: amLODIPine 5 MG TABLET PO SCH (08:13)
[2021-11-28] MEDS: DOCUSATE SODIUM 100 MG CAPSULE PO SCH ×2 (08:14→20:39)
[2021-11-28] MEDS: ASPIRIN 81 MG TAB.CHEW CHEWED SCH ×2 (08:14→20:39)
--- NOTE | 2021-11-28 08:42 | Operative Note ---
DATE OF OPERATION: 11/26/2021 PREOPERATIVE DIAGNOSIS: Right intertrochanteric hip fracture. POSTOPERATIVE DIAGNOSIS: Right intertrochanteric hip fracture with addition of osteopenia. PROCEDURE: Right gamma nail, open reduction internal fixation of intertrochanteric fracture using [place] components. SURGEON: Nish Matos M.D. BREAK AND LOAD OPERATOR: Wilver Nelson PA-C. This providers expertise and technical skill were required throughout the case. The WILMER assisted with preoperative coordination, intraoperative retraction, wound closure, and dressing and splint application, as well as postoperative documentation and care coordination. ANESTHESIA: General LMA anesthesia. COMPLICATIONS: None. ESTIMATED BLOOD LOSS: About 100 mL. IMPLANTS: A 34 cm long titanium gamma nail, 10 mm in diameter with a 95 compression screw. DESCRIPTION OF PROCEDURE: The patient was brought to the operating room, put to sleep with general LMA anesthesia. Once asleep, the patient had the right hip sterilely prepped and draped in the usual sterile fashion. A timeout was performed, confirming the operative site by initials, consent form, and x-ray. A 3-inch incision was made proximal to the greater trochanter, made an incision through the fascial layer and identified the greater trochanter. We then placed the pin centrally and then reamed proximally for the gamma nail. A guidewire was placed. We reamed up to the size 12 and then placed a 10 mm gamma nail. The gamma nail measured 34 cm in length and was then put into place. A screw was placed centrally in the femoral head. Once done, we were able to then place a 95 mm screw, which then we took off traction. We were able to compress the fracture site using the compression mechanism and then we locked the screw into place. We placed a 42.5 mm distally in a static locking hole to lock the nail distally. We took pictures of all screws to show reduction and placement. The patient tolerated this well. It was noted the patient's bone quality was very poor. We irrigated, closed the wound with 2-0 Vicryl and bruce. Sterile bandages were applied. She left the operating room in good condition. RBH:seamus Job ID: [id number] Doc ID: [id number] Nish Matos MD
[2021-11-28] MEDS: ATORVASTATIN 20 MG TABLET PO SCH (20:39)
[2021-11-28] MEDS: SENNOSIDES 1 TABLET PO SCH (20:40)
[2021-11-29] MEDS: HYDROcodone/APAP 5/325MG TABLET PO PRN ×2 (00:40→08:58)
[2021-11-29] MEDS: ACETAMINOPHEN 325 MG TABLET PO PRN (04:53)
[2021-11-29] MEDS: 0.9 % SODIUM CHLORIDE 10 ML SYRINGE IV SCH ×2 (04:53→05:33)
--- NOTE | 2021-11-29 07:00 | Orthopedic Progress Note ---
SUBJECTIVE Subjective Patient information: Note initiated : 11/29/21 at 6:59 am Service Date, if different from initiated Date: [] Patient: Jennifer Nino 76 y/o F admitted on 11/25/21 for leg fracture. Chief Complaint: [Pt is stable this morning on post operative day without any significant concerns or complaints. Patients vital signs have remained stable. Patients dressing is dry and is grossly intact from a neurovascular and motor standpoint. Patients 10 point ROS is otherwise negative. ] Principal diagnosis: right femur fx with pain Constitutional Vitals: Vital Signs Temp Pulse Resp BP Pulse Ox 99.8 F H 88 20 154/60 92 11/29/21 04:53 11/29/21 04:00 11/29/21 04:00 11/29/21 04:00 11/29/21 04:00 Period Temp Pulse Resp BP Sys/Guillory Pulse Ox Last 24 Hr 98.0 F-99.8 F 67-88 15-20 120-154/58-67 91-96 Intake and Output 11/28/21 11/29/21 11/29/21 21:59 05:59 13:59 Intake Total 700 480 Output Total 800 675 475 Balance -800 25 5 Weight 223 lb 11.2 oz Intake & Output: Intake & Output 11/28/21 11/29/21 11/29/21 21:59 05:59 13:59 Intake Total 700 480 Output Total 800 675 475 Balance -800 25 5 Weight 223 lb 11.2 oz Intake: Oral 700 480 Output: Urine Catheter Amount 800 675 475 Other: Urine Appearance Clear External Urinary Catheter Clear Urine Color Bright Yellow Dark [place] Dark Yellow External Urinary Catheter Bright Yellow Extremities Exam Extremities exam: Present normal capillary refill, normal inspection, Foot pink and warm and neurovascular intact OBJ DATA Labs CBC & Chem 7: 11/27/21 05:53 11/25/21 20:27 Labs: Abnormal Lab Results 11/27/21 05:53 Hct 32.6 L Meds: Medications Acetaminophen (Acetaminophen 325 Mg Tablet) 650 mg PO Q6HP PRN; Protocol PRN Reason: Per Pain Protocol/Fever > 101 Last Admin: 11/29/21 04:53 Dose: 650 mg Documented by: Hydrocodone Bitart/Acetaminophen (Hydrocodone/Apap 5/325mg Tablet) 1 - 2 tab PO Q4HP PRN; Protocol PRN Reason: Per Pain Protocol Last Admin: 11/29/21 00:40 Dose: 1 tab Documented by: Amlodipine Besylate (Amlodipine 5 Mg Tablet) 5 mg PO QDAY [facility] Last Admin: 11/28/21 08:13 Dose: 5 mg Documented by: Aspirin (Aspirin 81 Mg Tab.Chew) 81 mg CHEWED BID [facility] Last Admin: 11/28/21 20:39 Dose: 81 mg Documented by: Atorvastatin Calcium (Atorvastatin 20 Mg Tablet) 20 mg PO HS [facility] Last Admin: 11/28/21 20:39 Dose: 20 mg Documented by: Benzonatate (Benzonatate 100 Mg Capsule) 200 mg PO TIDP PRN PRN Reason: Cough Bisacodyl (Bisacodyl 10 Mg Supp.Rect) 10 mg GA Q2-3DAYS PRN PRN Reason: Constipation Dextrose (Dextrose 50% 50 Ml Vial) 0 ml IV UD PRN PRN Reason: Hypoglycemia Diagnostic Test (Pha) (Accu-Chek 1 Each Strip) 1 [facility] Last Admin: 11/28/21 20:37 Dose: 1 each Documented by: Docusate Sodium (Docusate Sodium 100 Mg Capsule) 100 mg PO BID [facility] Last Admin: 11/28/21 20:39 Dose: 100 mg Documented by: Ergocalciferol (Ergocalciferol (Vitamin D2) 50,000 Unit Capsule) 50,000 unit PO López@0900 [facility] Last Admin: 11/27/21 08:19 Dose: 50,000 unit Documented by: Glucose (Dextrose 31 Gm Oral.Susp) 15 gm PO PRN PRN PRN Reason: Hypoglycemia Hydrochlorothiazide (Hydrochlorothiazide 25 Mg Tablet) 25 mg PO QDAY [facility] Last Admin: 11/28/21 08:13 Dose: 25 mg Documented by: Hydromorphone HCl (Hydromorphone 1 Mg/Ml Syringe) 0.5 - 2 mg IV Q2HP PRN; Protocol PRN Reason: Per Pain Protocol Insulin Human Lispro (Insulin Lispro 1 Unit/0.01 Ml Unit) 0 unit SQ [facility] Protocol Last Admin: 11/28/21 20:44 Dose: 1 unit Documented by: Levothyroxine Sodium (Levothyroxine Sodium 112 Mcg Tablet) 112 mcg PO ACB [facility] Last Admin: 11/28/21 07:28 Dose: 112 mcg Documented by: Magnesium Hydroxide (Magnesium Hydroxide 30 Ml Oral.Susp) 30 ml PO BIDP PRN PRN Reason: Constipation Metoprolol Succinate (Metoprolol Succinate 25 Mg Tab.Xl.24h) 25 mg PO QDAY [facility] Last Admin: 11/28/21 08:13 Dose: 25 mg Documented by: Montelukast Sodium (Montelukast 10 Mg Tablet) 10 mg PO QDAY [facility] Last Admin: 11/28/21 08:13 Dose: 10 mg Documented by: Omeprazole (Omeprazole 20 Mg Capsule) 40 mg PO ACB [facility] Last Admin: 11/28/21 07:28 Dose: 40 mg Documented by: Ondansetron HCl (Ondansetron 4 Mg/2 Ml Vial) 4 mg IV Q6HP PRN PRN Reason: Nausea And Vomiting Ondansetron HCl (Ondansetron 4 Mg/2 Ml Vial) 4 mg IV Q4HP PRN; Protocol PRN Reason: Nausea And Vomiting Pioglitazone HCl (Pioglitazone 15 Mg Tablet) 15 mg PO DAILY [facility] Last Admin: 11/28/21 08:13 Dose: 15 mg Documented by: Polyethylene Glycol (Polyethylene Glycol 3350 17 Gm Packet) 17 gm PO DAILYP PRN PRN Reason: Constipation Repaglinide (Repaglinide 1 Mg Tablet) 1 mg PO TIDAC [facility] Last Admin: 11/28/21 17:02 Dose: 1 mg Documented by: Senna (Sennosides 1 Tablet) 2 tab PO HS [facility] Last Admin: 11/28/21 20:40 Dose: 2 tab Documented by: Sodium Biphosphate/Sodium Phosphate (Fleets Adult Enema) 1 dose GA Q3-4DAYS PRN PRN Reason: Constipation Sodium Chloride (0.9 % Sodium Chloride 10 Ml Syringe) 10 ml IV Q8 [facility] Last Admin: 11/29/21 04:53 Dose: 10 ml Documented by: Sodium Chloride (0.9 % Sodium Chloride 10 Ml Syringe) 10 ml IV Q8 [facility] Last Admin: 11/29/21 05:33 Dose: Not Given Documented by: Temazepam (Temazepam 15 Mg Capsule) 15 mg PO HSP PRN PRN Reason: Insomnia A/P Narrative A/P Narrative: The patient has been educated regarding dressing care, , restrictions, and follow up appointments. The patient has had all necessary DME prescribed. The patient has remained relatively stable during their hospital course. Pt does meet criteria for SNF transfer today Time Spent With Patient Time: Total time spent is greater than 50% in coordination of care (as documented) at patient's floor/unit and/or counseling patient: Total time spent with greater than 50% in coordination of care (as documented) at patient's floor/unit and/or counseling patient:: less than 15 minutes
[2021-11-29] MEDS: INSULIN LISPRO 1 UNIT/0.01 ML UNIT SQ SCH ×2 (07:39→11:47)
[2021-11-29] MEDS: REPAGLINIDE 1 MG TABLET PO SCH ×2 (07:40→11:22)
[2021-11-29] MEDS: OMEPRAZOLE 20 MG CAPSULE PO SCH (07:41)
[2021-11-29] MEDS: DOCUSATE SODIUM 100 MG CAPSULE PO SCH (07:41)
[2021-11-29] MEDS: MONTELUKAST 10 MG TABLET PO SCH (07:42)
[2021-11-29] MEDS: amLODIPine 5 MG TABLET PO SCH (07:42)
[2021-11-29] MEDS: PIOGLITAZONE 15 MG TABLET PO SCH (07:42)
[2021-11-29] MEDS: HYDROCHLOROTHIAZIDE 25 MG TABLET PO SCH (07:42)
[2021-11-29] MEDS: ASPIRIN 81 MG TAB.CHEW CHEWED SCH (07:42)
[2021-11-29] MEDS: METOPROLOL SUCCINATE 25 MG TAB.XL.24H PO SCH (07:43)
[2021-11-29] MEDS: LEVOTHYROXINE SODIUM 112 MCG TABLET PO SCH (07:45)
== END 2021-11-29 11:46 | disposition home or self-care (01) | DRG 482 ==
LOC: ED 17:35 → MEDSUR 21:09
PROVIDERS: ADMIT Internal Medicine; ATTEND Orthopaedic Surgery